=== PATIENT | female | born 1975 | race Caucasian/White ===

== ENCOUNTER 2017-10-19 04:11 | Emergency (ER) | payer SELFPAY ==
[~2017-10-19] VITALS: Ht 162.6 cm; Wt 64.0 kg
[2017-10-19 04:40] VITALS: BP 146/98
== END 2017-10-19 04:23 | disposition left against medical advice (07) ==
LOC: ER 04:11
DX: Z00.8 Encounter for other general examination (principal); Z53.21 Procedure and treatment not carried out due to patient leaving prior to being seen by health care provider